=== PATIENT | female | born 1945 | race Caucasian/White ===

== ENCOUNTER 2024-01-23 10:43 | Day surgery (SDC) | payer MEDICARE ==
[~2024-01-23] VITALS: Ht 149.9 cm; Wt 62.1 kg
[~2024-01-23 10:43] MED LIST: EMER1PAK PO; PHENYLEPHRINE 10% OPHTH SOL 5ML OS PRN; PROBCAP14 PO; VITA200010 PO; VITAE40CA PO; [UNRECOGNIZED DRUG - CODE] PO
[2024-01-23] MEDS ORDERED: fentaNYL 100 MCG/2 ML INJECTION As Ordered ONE (11:15)
[2024-01-23] MEDS: OFLOXACIN 0.3 % (OCUFLOX) OPTH SOL 5ML OS ONE (11:18)
[2024-01-23] MEDS: TROPICAMIDE 1% OPHTH SOLN 15ML OS SCH (11:18)
[2024-01-23] MEDS: PHENYLEPHRINE 2.5% OPHTH SOL 2ML OS SCH (11:19)
[2024-01-23] MEDS: LIDOCAINE 3.5 % 1ML OPHTH TOPICAL GEL OU ONE (11:19)
[2024-01-23] MEDS: CYCLOPENTOLATE 1% OPHTH SOLN 2ML BTL OS SCH (11:19)
[2024-01-23] MEDS: LIDOCAINE 1% SDV 5ML VIAL As Ordered ONE (11:59)
[2024-01-23] MEDS: BSS IRRIG/VANCO(10MG)/TOBRA(5MG)/EPINEPH(1:1000-0.5CC)500ML BAG-ORONLY As Ordered ONE (11:59)
[2024-01-23] MEDS: CEFUROXIME 1MG/0.1ML INTRACAMERAL INJ As Ordered ONE (11:59)
[2024-01-23 12:15] VITALS: BP 184/87; TEMP 97.5; O2SAT 95
== END 2024-01-23 12:30 | disposition home or self-care (01) ==
LOC: M SDC 10:43
PROVIDERS: ATTEND Ophthalmology
DX: H25.12 Age-related nuclear cataract, left eye (principal); R01.1 Cardiac murmur, unspecified; Z88.8 Allergy status to other drugs, medicaments and biological substances
CPT/HCPCS: 66984; 92015; J0697; J3010; V2632

== ENCOUNTER 2024-03-19 08:50 | Day surgery (SDC) | payer MEDICARE ==
[~2024-03-19] VITALS: Ht 149.9 cm; Wt 63.5 kg
[~2024-03-19 08:50] MED LIST changes: +PHENYLEPHRINE 10% OPHTH SOL 5ML OD PRN; -PHENYLEPHRINE 10% OPHTH SOL 5ML OS PRN
[2024-03-19] MEDS: OFLOXACIN 0.3 % (OCUFLOX) OPTH SOL 5ML OD ONE (09:37)
[2024-03-19] MEDS: LIDOCAINE 3.5 % 1ML OPHTH TOPICAL GEL OU ONE (09:37)
[2024-03-19] MEDS: PHENYLEPHRINE 2.5% OPHTH SOL 2ML OD SCH (09:41)
[2024-03-19] MEDS: ATROPINE SULFATE 1% OPHTH SOLN 2ML BTL OD SCH (09:41)
[2024-03-19] MEDS: TROPICAMIDE 1% OPHTH SOLN 15ML OD SCH (09:41)
[2024-03-19] MEDS ORDERED: MIDAZOLAM INJ 2MG/2ML VIAL As Ordered ONE (09:53)
[2024-03-19] MEDS: CEFUROXIME 1MG/0.1ML INTRACAMERAL INJ As Ordered ONE (10:10)
[2024-03-19] MEDS: LIDOCAINE 1% SDV 5ML VIAL As Ordered ONE (10:10)
[2024-03-19] MEDS: BSS IRRIG/VANCO(10MG)/TOBRA(5MG)/EPINEPH(1:1000-0.5CC)500ML BAG-ORONLY As Ordered ONE (10:11)
[2024-03-19 10:23] VITALS: BP 138/77; TEMP 96.8; O2SAT 99
== END 2024-03-19 10:40 | disposition home or self-care (01) ==
LOC: M SDC 08:50
PROVIDERS: ATTEND Ophthalmology
DX: H25.11 Age-related nuclear cataract, right eye (principal); Z98.42 Cataract extraction status, left eye; Z88.8 Allergy status to other drugs, medicaments and biological substances
CPT/HCPCS: 66984; J0697; J2250; V2632